=== PATIENT | female | born 2000 | race Caucasian/White ===

== ENCOUNTER 2019-03-23 09:56 | Emergency (ER) | payer OTHER ==
[~2019-03-23] VITALS: Ht 160 cm; Wt 74.4 kg
[2019-03-23] MEDS ORDERED: SYNTHROID100 MCG (10:10)
== END 2019-03-23 14:57 | disposition home or self-care (01) ==
LOC: ER 09:56
DX: S00.83XA Contusion of other part of head, initial encounter (principal); V49.9XXA Car occupant (driver) (passenger) injured in unspecified traffic accident, initial encounter; Y93.89 Activity, other specified; Y92.488 Other paved roadways as the place of occurrence of the external cause; Y99.8 Other external cause status; R50.9 Fever, unspecified